=== PATIENT | male | born 1950 | race Caucasian/White ===

== ENCOUNTER 2016-11-27 20:00 | Emergency (ER) | payer OTHER ==
--- NOTE | 2016-11-27 20:03 | PDOC ---
History of Present Illness - General History Source: Patient Exam Limitations: No Limitations <AngelesKnottAc kearns - Last Filed: 11/27/16 20:17> - General History Source: Patient Exam Limitations: No Limitations <Andrew Helm I - Last Filed: 11/27/16 21:23> - General Chief Complaint: Chest Pain Stated Complaint: CHEST PAIN Time Seen by Provider: 11/27/16 20:03 - History of Present Illness Initial Comments: 11/27/16 20:12 The patient is a 65 year old male, with a significant past medical history of high cholesterol, who presents to the emergency department with chest pain for about an hour. The patient reports having gradually worsening squeezing pain in his chest over the past hour. He denies any radiation of his pain, and reports his pain is localized in the center of his chest. He reports taking two antacids and 1 baby aspirin with no alleviation of his pain. He denies any recent fevers, chills, headache or dizziness. He denies any recent vomit, diarrhea or constipation. He denies any recent shortness of breath. He denies any recent dysuria, frequency, urgency or hematuria. PAST MEDICAL HISTORY: See HPI PAST SURGICAL HISTORY: No significant history. FAMILY HISTORY: No pertinent history. SOCIAL HISTORY: Patient lives with family and is employed. Occasional marijuana use. MEDICATIONS: Reviewed. ALLERGIES: As per nursing notes. ROS General: No fevers or chills, no weakness, no weight loss HEENT: No change in vision. No sore throat. No ear pain CardioVascular: +chest pain No shortness of breath Respiratory:No cough, or wheezing. Gastrointestinal: No nausea, vomiting, diarrhea or constipation. No rectal bleeding Genitourinary: No dysuria, hematuria, or frequency Musculoskeletal: No joint or muscle pain or swelling Neurologic: No headache, vertigo, dizziness or loss of consciousness Psychiatric: No depression Skin: No rashes or easy bruising Endocrine: no increased thirst or abnormal weight change Allergic: no skin or latex allergy All other systems reviewed and normal Exam: General: Well-nourished well-developed individual, no acute distress HEENT: Throat: Normal, tonsils normal, no erythema or exudate Neck: Supple, no meningeal signs, no lymphadenopathy Eyes: Pupils equal reactive and round, extraocular motion intact Chest: Nontender to palpation Cardiac: S1-S2 normal, regular rate and rhythm, no murmurs rubs or gallops Respiratory: Lungs clear to auscultation bilateral Abdomen: Soft, nondistended, normal bowel sounds, nontender to palpation diffusely Extremities: Warm, dry, no cyanosis, clubbing, or edema Skin: No rashes Neuro: Alert and oriented x3, nonfocal exam, grossly intact, normal gait Psych: Normal mood and affect (Ac Boo) 11/27/16 20:24 A portion of this note was documented by scribe services under my direction. I have reviewed the details of the note, within reason, and agree with the documentation. The case summary and management plan written by me. EKG shows normal sinus rhythm, an occasional premature supraventricular beats otherwise normal intervals and normal EKG. Patient's chest pain resolved post arrival in the emergency room This is a 65-year-old male who comes in complaining of substernal chest pain. Patient describes it as a squeezing sensation with no associated symptoms. Patient is quite anxious on arrival in the emergency room. Patient only risk factor is a history of high cholesterol. Patient otherwise is healthy and takes no medication. Patient has no family history. Patient's heart score is 2. Patient's troponin is negative. Patient discharged home told to follow-up with his doctor told to get a outpatient stress test (Andrew Helm I) Past History <Ac Boo - Last Filed: 11/27/16 20:17> <Andrew Helm I - Last Filed: 11/27/16 21:23> - Past Medical History Allergies/Adverse Reactions: Allergies Allergy/AdvReac Type Severity Reaction Status Date / Time clarithromycin [From Biaxin] Allergy Verified 11/27/16 20:11 codeine Allergy Verified 11/27/16 20:10 Home Medications: Ambulatory Orders NK [No Known Home Medication] 11/27/16 - Vital Signs Last Vital Signs Temp Pulse Resp BP Pulse Ox 98.6 F 77 14 157/95 98 11/27/16 20:07 11/27/16 20:07 11/27/16 20:07 11/27/16 20:07 11/27/16 20:07 Heart Score/ECG Review - History History: Slightly suspicious - Electrocardiogram EKG: Normal - Age Age: 45-65 - Risk Factors Risk Factors Heart Score: Yes Hx Hypercholesterolemia Based on the list above the patient has:: 1-2 risk factors - Troponin Troponin: </= normal limit - Score Heart Score - Total: 2 <Andrew Helm I - Last Filed: 11/27/16 21:23> ED Treatment Course - LABORATORY CBC & Chemistry Diagram: 11/27/16 20:10 11/27/16 20:10 <Ac Boo - Last Filed: 11/27/16 20:17> - LABORATORY CBC & Chemistry Diagram: 11/27/16 20:10 11/27/16 20:10 <Andrew Helm I - Last Filed: 11/27/16 21:23> - ADDITIONAL ORDERS Additional order review: Laboratory Results 11/27/16 11/27/16 20:10 20:10 Sodium 134 L Potassium 4.5 Chloride 99 Carbon Dioxide 30 H Anion Gap 5 L BUN 19 H Creatinine 0.9 Creat Clearance w eGFR > 60 Random Glucose 103 Calcium 9.8 Total Bilirubin 1.4 H AST 33 ALT 49 H Alkaline Phosphatase 67 Creatine Kinase 51 Troponin I < 0.03 L Total Protein 6.7 Albumin 4.0 11/27/16 20:10 RBC 5.29 MCV 88.7 MCHC 35.1 RDW 13.4 MPV 7.4 L Neutrophils % 57.0 Lymphocytes % 27.0 Monocytes % 9.7 Eosinophils % 1.5 Basophils % 4.8 H - RADIOLOGY Radiology Studies Ordered: Category Date Time Status CHEST X-RAY PORTABLE* [RAD] Stat Radiology 11/27/16 20:11 Taken *DC/Admit/Observation/Transfer <Ac Boo - Last Filed: 11/27/16 20:17> - Discharge Dispostion Admit: No <Andrew Helm I - Last Filed: 11/27/16 21:23> Diagnosis at time of Disposition: Anxiety, Chest pain in adult - Discharge Dispostion Disposition: HOME Condition at time of disposition: Good - Referrals Referrals: Julio Moya MD [Primary Care Provider] - - Patient Instructions Additional Instructions: Your workup for cardiac causes of your chest pain was negative. However given your age it is important that you follow-up with your primary care doctor and get an outpatient stress test. Return to the emergency department immediately with ANY new, persistent or worsening symptoms. Continue any medications as previously prescribed by your physician. You should follow up with your primary doctor as soon as possible regarding today's emergency department visit. . Please make sure your doctor reviews the results of your emergency evaluation. Thank you for coming to the Emergency Department today for your care. It was a pleasure to see you today. Please note that your evaluation is INCOMPLETE until you follow-up with your doctor. - Attestations Scribe Attestion: 11/27/16 20:06 Documentation prepared by Ac Boo, acting as medical device engineer for Andrew Helm MD. (Ac Boo)
[2016-11-27 20:12] VITALS: TEMP 98.6; BMI 27.1
[2016-11-27 20:21] LABS: BASOPHIL 4.8 % (0-2.0); EOSINOPHIL 1.5 % (0-4.5); MCH 31.2 pg (25.7-33.7); MCHC 35.1 g/dl (32.0-35.9); MEAN CELL VOLUME 88.7 fl (80-96); MEAN PLT VOLUME 7.4 fl (7.5-11.1); PLATELET COUNT 185 K/MM3 (134-434); RDW 13.4 % (11.9-15.9); WHITE BLOOD COUNT 10.4 K/mm3 (4.0-10.8)
[2016-11-27 20:34] LABS: CPK(DFH) 51 IU/L (38-174)
[2016-11-27 20:35] LABS: ALK PHOS 67 U/L (32-92); ANION GAP 5 (8-16); BILIRUBIN,TOTAL 1.4 mg/dl (0.2-1.0); CALCIUM 9.8 mg/dl (8.4-10.2); CO2 30 mmol/L (22-28); CREATININE 0.9 mg/dl (0.6-1.3); GLUCOSE,RANDOM 103 mg/dl (74-106); SGOT/AST 33 U/L (10-42); SGPT/ALT 49 U/L (10-40); TOT PROT 6.7 g/dl (6.4-8.3)
[2016-11-27 20:42] LABS: TROPONIN I (DFP) < 0.03 ng/ml (0.03-0.50)
[2016-11-27 21:24] VITALS: BP 148/90; PULSE 85
--- NOTE | 2016-11-28 11:56 | EKG ---
Test Reason : Blood Pressure : / mmHG Vent. Rate : 076 BPM Atrial Rate : 076 BPM P-R Int : 150 ms QRS Dur : 090 ms QT Int : 372 ms P-R-T Axes : 022 050 053 degrees QTc Int : 418 ms SINUS RHYTHM WITH PREMATURE SUPRAVENTRICULAR COMPLEXES OTHERWISE NORMAL ECG NO PREVIOUS ECGS AVAILABLE Confirmed by DARIEL BRISENO MD ([id number]) on 11/28/2016 11:56:01 AM Referred By: MD MERLOS Confirmed By:DARIEL BRISENO MD
== END 2016-11-27 21:23 | disposition home or self-care (01) ==
LOC: FER 20:00
DX: R07.9 Chest pain, unspecified (principal); F41.9 Anxiety disorder, unspecified; E78.00 Pure hypercholesterolemia, unspecified
CPT/HCPCS: 36415; 71010-TC; 80053; 82550; 84484; 85025; 93005; 99284-25